=== PATIENT | female | born 1975 | race Caucasian/White ===

== ENCOUNTER 2019-05-08 21:16 | Emergency (ER) | payer OTHER, MEDICAID ==
[~2019-05-08] VITALS: Ht 172.7 cm; Wt 78.9 kg
[2019-05-08 22:34] LABS: INFLUENZA A ANTIGEN Negative (Negative)
[2019-05-08] MEDS ORDERED: PROMETH-CODEIN 65 ML PO (22:55)
[2019-05-08 23:23] VITALS: BP 110/67
== END 2019-05-08 23:24 | disposition home or self-care (01) ==
LOC: M.ERS 21:16
PROVIDERS: Nurse Practitioner Family
DX: J10.1 Influenza due to other identified influenza virus with other respiratory manifestations (principal); Z98.890 Other specified postprocedural states